=== PATIENT | male | born 1960 | race Caucasian/White ===

== ENCOUNTER 2019-02-22 03:34 | Emergency (ER) | payer MEDICAID ==
[~2019-02-22] VITALS: Ht 198.1 cm; Wt 86.2 kg
[2019-02-22] MEDS ORDERED: LORA-258 PO (03:48)
--- NOTE | 2019-02-22 03:50 | NUR ---
Patient ambulated with stable gait. A/Ox4. Speech is clear, and speaks in complete sentences. Patient came for c/o nausea+dry heaving from "alcohol withdrawal". Per patient, he had been binge drinking for the past 7 days, about a bottle of rum a day. Respiratory even and unlabored, no cough no sob. Patient is extremely jittery with tremors. Denies having any diarrhea. Patient in bed at lowest position, sr upx2, call light within reach. Fall precautions implemented per protocol. Lights dimmed.
[2019-02-22] MEDS ORDERED: ONDANSETRON 4 MG/2 ML VIAL IV ONE ×2 (04:15→06:45)
[2019-02-22] MEDS ORDERED: LORAZEPAM 2 MG/1 ML VIAL IV ONE (04:15)
[2019-02-22] MEDS ORDERED: PANTOPRAZOLE SODIUM 40 MG VIAL IV ONE (04:15)
[2019-02-22] MEDS ORDERED: IV NORMAL SALINE 1000 ML BAG IV ONE ×2 (04:15→06:30)
[2019-02-22] MEDS ORDERED: ONDANSETRON 4 MG/2 ML VIAL ONE ×2 (04:28→06:37)
[2019-02-22] MEDS ORDERED: PANTOPRAZOLE SODIUM 40 MG VIAL ONE (04:29)
[2019-02-22] MEDS ORDERED: LORAZEPAM 2 MG/1 ML VIAL ONE (04:30)
[2019-02-22 04:32] LABS: BASOPHILS % (AUTO) 0.6 % (0.0-2.0); EOSINOPHILS # (AUTO) 0.2 K/uL (0.0-0.7); EOSINOPHILS % (AUTO) 4.8 % (0.0-7.0); HEMATOCRIT 43.2 % (36.7-47.1); HEMOGLOBIN 14.6 g/dL (12.5-16.3); LYMPHOCYTES # (AUTO) 1.4 K/uL (20.0-40.0); MEAN CORPUSCULAR HEMOGLOBIN 31.5 uug (23.8-33.4); MEAN CORPUSCULAR HGB CONC 34 g/dL (32.5-36.3); MEAN CORPUSCULAR VOLUME 93.1 fL (73.0-96.2); MONOCYTES # (AUTO) 0.2 K/uL (2.0-10.0); MONOCYTES % (AUTO) 4.5 % (0.0-11.0); NEUTROPHILS # (AUTO) 2.6 K/uL (1.8-8.9); NEUTROPHILS % (AUTO) 58.1 % (38.5-71.5); PLATELET COUNT (AUTO) 109 K/uL (152-348); RED BLOOD CELL COUNT(AUTO) 4.64 MIL/uL (4.06-5.63); WHITE BLOOD COUNT (AUTO) 4.4 K/uL (3.6-10.2)
[2019-02-22 04:46] LABS: BILIRUBIN,DIRECT 0.2 mg/dL (0.0-0.2); BILIRUBIN,TOTAL 0.6 mg/dL (0.2-1.0); CREATININE 0.9 mg/dL (0.6-1.3); POTASSIUM 4.1 mmol/L (3.5-5.1); TOTAL PROTEIN, SERUM 7.4 g/dL (6.4-8.2)
--- NOTE | 2019-02-22 04:51 | NUR ---
Patient in bed NAD, VSS
[2019-02-22 05:17] LABS: *BILIRUBIN,URIN NEGATIVE (NEGATIVE); *BLOOD, URINE 1+ (NEGATIVE); *CLARITY,URINE CLEAR (CLEAR); *COLOR,URINE YELLOW (YELLOW); *KETONES,URINE 1+ (NEGATIVE); LEUKOCYTE ESTERASE ,URINE NEGATIVE (NEGATIVE); NITRITE, URINE NEGATIVE (NEGATIVE); UGLUCOSE NEGATIVE (NEGATIVE)
[2019-02-22 05:33] LABS: BACTERIA,URINE NONE SEEN /HPF (NONE SEEN); MUCUS,URINE FEW /LPF (0-FEW); RBC,URINE 0-3 /HPF (0-3); SQUAMOUS EPITHELIAL CELL,UR FEW /HPF (NONE SEEN); WBC,URINE 0-3 /HPF (0-3)
--- NOTE | 2019-02-22 07:10 | NUR ---
recieved pt in bed, resting arousable.
--- NOTE | 2019-02-22 09:19 | NUR ---
Patient discharged to home in stable conditon. Written and verbal after care instructions given. Patient verbalizes understanding of instructions.pt axox4, walks in steady gait, speech normal. pt not driving.
[2019-02-22 09:20] VITALS: BP 120/77
== END 2019-02-22 09:22 | disposition home or self-care (01) ==
LOC: ER 03:37
DX: F10.129 Alcohol abuse with intoxication, unspecified (principal); F41.9 Anxiety disorder, unspecified; Z79.899 Other long term (current) drug therapy; Y90.7 Blood alcohol level of 200-239 mg/100 ml
CPT/HCPCS: 36415; 80048; 80076; 81000; 81001; 83690; 84484; 85025; 93005; 96361; 96374; 96375; 96376; 99284; C9113; G0480; J2060; J2405 ×2; 70030-TC; A4663; J7030